=== PATIENT | female | born 1960 | race African-American/Black ===

== ENCOUNTER 2017-05-24 16:20 | Emergency (ER) | payer MEDICAID ==
[~2017-05-24] VITALS: Ht 172.7 cm; Wt 120.0 kg
[2017-05-24] MEDS ORDERED: AMPICILLIN SOD/SULBACTAM NA 3 G in SODIUM CHLORIDE 0.9% 100 ML IV STA (20:14)
[2017-05-24] MEDS ORDERED: ONDANSETRON HCL 4MG/2ML VIAL IV ONE (20:15)
[2017-05-24] MEDS ORDERED: KETOROLAC 15MG/ML VIAL IV ONE (20:15)
[2017-05-24 21:30] VITALS: BP 162/58
== END 2017-05-24 22:11 | disposition home or self-care (01) ==
LOC: ER 17:38
DX: K04.7 Periapical abscess without sinus (principal); R11.2 Nausea with vomiting, unspecified; Z72.0 Tobacco use
CPT/HCPCS: 96365; 96375; 99284; J0295; J1885; J2405; J7050

== ENCOUNTER 2025-04-24 09:25 | Emergency (ER) | payer SELFPAY ==
[~2025-04-24] VITALS: Ht 175.3 cm; Wt 119.0 kg
[2025-04-24 09:32] VITALS: O2SAT 99
[2025-04-24] MEDS: ACETAMINOPHEN 325MG TABLET PO ONE (09:58)
[2025-04-24] MEDS: IBUPROFEN 600MG TABLET PO ONE (10:03)
[2025-04-24 11:14] LABS: HEMATOCRIT. 35.6 % (36.0-48.0); HEMOGLOBIN. 11.8 g/dL (12.0-16.0); MEAN PLATELET VOLUME 9.4 fl (7.4-10.4); PLATELET 257 x1000/uL (130-400); RED BLOOD CELL COUNT 4.07 mill/uL (4.2-5.4); RED CELL DISTRIBUTION WIDTH 14.3 % (11.6-14.6)
[2025-04-24 11:29] LABS: TROPONIN I HIGH SENSITIVITY < 4 ng/L (3.0-34)
[2025-04-24 11:31] LABS: CREATININE 1.0 mg/dL (0.6-1.0); UREA NITROGEN BLOOD 10 mg/dL (9-23)
[2025-04-24 11:32] LABS: PROTEIN TOTAL 7.7 g/dL (6.0-8.3)
[2025-04-24 11:33] LABS: ASPARTATE AMINOTRANSFERASE 25 IU/L (<34); BILIRUBIN DIRECT 0.1 mg/dL (<=3.0); BILIRUBIN TOTAL 0.5 mg/dL (0.1-1.0)
[2025-04-24 12:11] LABS: BAND% 12.0 % (1.0-6.0); LYMPHOCYTES % MANUAL 9.0 % (20.0-60.0); MONOCYTES % MANUAL 10.0 % (2.0-8.0); NEUTROPHILS % MANUAL 69.0 % (45.0-75.0); PLATELET ESTIMATE NORMAL
[2025-04-24 12:59] VITALS: BP 127/50; PULSE 81; RESP 15; TEMP 36.9; O2SAT 98
[2025-04-24] MEDS ORDERED: ONDA-239 PO (13:16)
== END 2025-04-24 13:26 | disposition home or self-care (01) ==
LOC: ER 09:25
DX: B34.9 Viral infection, unspecified (principal); R07.9 Chest pain, unspecified; F17.200 Nicotine dependence, unspecified, uncomplicated
CPT/HCPCS: 36415; 71045; 80048; 80076; 84484; 85025; 93005; 99285